=== PATIENT | female | born 1955 | race Caucasian/White ===

== ENCOUNTER 2018-03-19 23:20 | Emergency (ER) | payer MEDICAID ==
[~2018-03-19] VITALS: Ht 160 cm; Wt 70.0 kg
[~2018-03-19 23:20] MED LIST: [UNRECOGNIZED DRUG - REMARK] PO
[2018-03-20 02:45] VITALS: BP 139/76
[2018-03-20] MEDS ORDERED: dexamethasone sod phosphate 10mg/ml inj IM STA (03:35)
[2018-03-20] MEDS ORDERED: GUAI473S11 PO (03:46)
[2018-03-20] MEDS ORDERED: AZIT-63 PO (03:46)
== END 2018-03-20 04:33 | disposition home or self-care (01) ==
LOC: ER 23:22
DX: J02.9 Acute pharyngitis, unspecified (principal); J40 Bronchitis, not specified as acute or chronic; E11.9 Type 2 diabetes mellitus without complications; Z79.899 Other long term (current) drug therapy
CPT/HCPCS: 82948; 96372; 99283; J1100